=== PATIENT | female | born 1980 | race African-American/Black ===

== ENCOUNTER 2023-02-03 10:52 | Observation (INO) ==
[2023-02-03] MEDS ORDERED: oxyCODONE SR 10 mg TAB ONE (11:24)
[2023-02-03] MEDS ORDERED: Ondansetron 4 mg VIAL 2 MG/ML 2 ml VIAL ONE (11:25)
[2023-02-03] MEDS ORDERED: Scopolamine 1 mg/72hr PATCH ONE (11:25)
[2023-02-03] MEDS ORDERED: Clindamycin 900 MG/50 **NS BAG 900 MG/50 ML BAG IV ONE (12:00)
[2023-02-03 12:12] LABS: Activated Partial Thrombo Time 32.3 seconds (26.0-38.0)
[2023-02-03 12:20] LABS: ABS Basophils 0.1 10^3/uL (0.0-0.1); ABS Eosinophils 0.1 10^3/uL (0.0-0.5); ABS Lymphocytes 2.4 10^3/uL (1.0-4.8); ABS Monocytes 0.6 10^3/uL (0.0-0.9); ABS Neutrophils 3.3 10^3/uL (1.5-7.6); ABS Nucleated RBC 0.02 10^3/ul; Eosinophil % 1.1 %; Hematocrit 40.6 % (35-45); Hemoglobin 12.8 g/dL (11.5-14.3); Lymphocyte % 37.7 %; Mean Corpuscular Hemoglobin 22.8 pg (27-33); Mean Corpuscular Hgb Conc 31.7 g/dL (31-36); Mean Platelet Volume 8.4 fL (7.5-11.2); Nucleated Red Blood Cells % 0.3 %/100WBC (0.0-0.8); Platelet Count 376 10^3/uL (150-450); Red Blood Count 5.64 10^6/uL (3.63-4.92); Red Cell Distribution Width 14.1 % (12-17); White Blood Count 6.5 10^3/uL (3.8-11.8)
[2023-02-03 12:29] LABS: Calcium 9.2 mg/dL (8.6-10.3); Creatinine, Serum 0.89 mg/dL (0.51-0.95); Potassium 3.7 mmol/L (3.5-5.0); eGFR CKD-EPI 83.5 (>60)
[2023-02-03 12:32] LABS: HCG Pregnancy 0.87 mIU/mL
[2023-02-03] MEDS ORDERED: Lidocaine 1% VIAL 10 MG/ML 30 ML VIAL ONE (12:52)
[2023-02-03] MEDS ORDERED: Iohexol 350 (CONTRAST) 100 ML PAK IV ONE (12:53)
[2023-02-03] MEDS ORDERED: Heparin 2 UNITS/ML IVPREMIX 3,000 UNIT/1,500 ML BAG IV ONE (12:53)
[2023-02-03] MEDS ORDERED: fentaNYL 100 mcg/2 ml 50 MCG/ML VIAL ONE (13:09)
[2023-02-03] MEDS ORDERED: Midazolam 5 mg/5 ml VIAL 1 mg/ml 5 ml VIAL (5 mg) ONE (13:09)
[2023-02-03] MEDS ORDERED: nitroGLYCERIN DRIP 25,000 MCG/250 ML BTL ONE (13:10)
[2023-02-03] MEDS ORDERED: HYDROmorphone 0.5 MG/0.5 ML SYRINGE ONE ×2 (14:12→14:23)
[2023-02-03] MEDS ORDERED: Naloxone 0.4 mg VIAL 0.4 mg/ml 1 ml VIAL IV PUSH PRN (14:33)
[2023-02-03] MEDS: NS 0.9% 1,000 ML IV SCH (14:59)
[2023-02-03] MEDS ORDERED: HYDROmorphone PCA 20 MG/20 ML PCA.SYRING PCA SCH (15:00)
[2023-02-03] MEDS: Ondansetron 4 mg VIAL 2 MG/ML 2 ml VIAL IV SCH (20:43)
[2023-02-04] MEDS: NS 0.9% 1,000 ML IV SCH ×2 (01:16→10:31)
[2023-02-04] MEDS: Ondansetron 4 mg VIAL 2 MG/ML 2 ml VIAL IV SCH ×2 (02:16→07:50)
[2023-02-04 08:51] LABS: ABS Basophils 0.1 10^3/uL (0.0-0.1); ABS Lymphocytes 1.9 10^3/uL (1.0-4.8); ABS Monocytes 0.7 10^3/uL (0.0-0.9); ABS Neutrophils 7.9 10^3/uL (1.5-7.6); Eosinophil % 0.1 %; Hematocrit 35.8 % (35-45); Hemoglobin 11.6 g/dL (11.5-14.3); Lymphocyte % 17.6 %; Mean Corpuscular Hemoglobin 23.2 pg (27-33); Mean Corpuscular Hgb Conc 32.3 g/dL (31-36); Mean Corpuscular Volume 71.9 fL (80-97); Mean Platelet Volume 8.3 fL (7.5-11.2); Platelet Count 332 10^3/uL (150-450); Red Blood Count 4.98 10^6/uL (3.63-4.92); White Blood Count 10.6 10^3/uL (3.8-11.8)
[2023-02-04 08:54] LABS: Calcium 8.5 mg/dL (8.6-10.3); Creatinine, Serum 0.88 mg/dL (0.51-0.95); Magnesium 1.9 mg/dL (1.9-2.7); Potassium 3.6 mmol/L (3.5-5.0); eGFR CKD-EPI 84.6 (>60)
[2023-02-04] MEDS ORDERED: CMCS: NORETHINDRONE ACETATE 5 MG TAB (NF) PO SCH (09:00)
[2023-02-04 09:34] VITALS: BP 120/76
[2023-02-04] MEDS ORDERED: HYDROcodone/ACETAMIN 5/325 mg TAB PO PRN (09:39)
[2023-02-04] MEDS ORDERED: CMC:Ketorolac 10 mg TAB (NF) PO SCH (10:00)
== END 2023-02-04 12:45 | disposition home or self-care (01) ==
LOC: CHICATH 10:52 → SSU 10:52 → SUATTDRO 17:10
PROVIDERS: ADMIT Internal Medicine; ATTEND Hospitalist
PROC: ANG.UFE (2023-02-03 13:15)